=== PATIENT | female | born 1950 | race African-American/Black ===

== ENCOUNTER 2023-05-04 07:42 | Outpatient (CLI) | payer OTHER, MEDICAID ==
[2023-05-04] MEDS ORDERED: Sodium Bicarbonate 2.5 MEQ/5 ML VIAL ONE (08:56)
[2023-05-04] MEDS ORDERED: Lidocaine 1% MPF 2 ML VIAL ONE (08:56)
[2023-05-04] MEDS ORDERED: Lidocaine 1% PF 5 ML VIAL ONE ×2 (08:57→09:59)
[2023-05-04 10:36] VITALS: BP 167/95; TEMP 96.8
== END 2023-05-04 10:25 | disposition home or self-care (01) ==
LOC: CSHRAD 07:42
PROVIDERS: ATTEND Family Medicine
DX: G89.4 Chronic pain syndrome (principal); M54.16 Radiculopathy, lumbar region; M47.817 Spondylosis without myelopathy or radiculopathy, lumbosacral region
CPT/HCPCS: 62304; 72131